=== PATIENT | male | born 1970 | race Caucasian/White ===

== ENCOUNTER 2018-06-15 00:36 | Emergency (ER) | payer OTHER, SELFPAY ==
[2018-06-15 00:53] VITALS: BP 130/89; PULSE 77; RESP 16; TEMP 36.7; O2SAT 98; BMI 29.8
--- NOTE | 2018-06-15 03:23 | ED.EAR ---
HPI - Ear Problem General Chief complaint: Ear Stated complaint: States poss ear infection, had flu last week Time Seen by Provider: 06/15/18 03:23 Source: patient Mode of arrival: ambulatory Limitations: no limitations History of Present Illness HPI Narrative: Patient is a 48-year-old male who presents with right ear pain. Mom said he was just getting over the flu he has had a fever cough and upper respiratory like symptoms he says that is overall improving. However over the last 3 days he has had external right ear pain. He noticed some redness along the outside air hurts to touch. His he has not had any drainage. MD Complaint: ear pain Location: right ear Related Data Home Medications Medication Instructions Recorded Confirmed amoxicillin-pot clavulanate 875 mg PO Q12H #0 09/01/16 [Augmentin] ibuprofen 800 mg PO TID #0 09/01/16 Previous Rx's Medication Instructions Recorded levofloxacin [Levaquin] 500 mg PO QDAY #10 tab 05/24/17 cephalexin 500 mg PO TID #21 tab 06/15/18 Allergies Allergy/AdvReac Type Severity Reaction Status Date / Time bee venom protein (honey bee) Allergy Severe Anaphylaxis Verified 06/15/18 00:57 [BEE VENOM PROTEIN (HONEY BEE)] erythromycin base Allergy Severe VOMITING Verified 06/15/18 00:57 [From ERYTHROCIN] sulfamethoxazole Allergy Severe ELEVATED Verified 06/15/18 00:57 [From BACTRIM] LIVER ENZYMES trimethoprim [From BACTRIM] Allergy Severe ELEVATED Verified 06/15/18 00:57 LIVER ENZYMES Review of Systems Review of Systems ROS Unobtainable: All systems reviewed & are unremarkable except as noted in HPI and below Constitutional Denies chills, Denies fever(s), Denies lethargy and Denies weakness ENT Ears, Nose, Mouth, and Throat: Reports as per HPI Cardiovascular Denies chest pain, Denies irregular heart rhythm, Denies lightheadedness, Denies palpitations, Denies dyspnea, Denies dyspnea on exertion and Denies orthopnea Respiratory Denies cough, Denies dyspnea, Denies dyspnea on exertion and Denies wheezing Gastrointestinal Gastrointestinal: Denies abdominal pain, Denies change in bowel habits, Denies diarrhea, Denies nausea and Denies vomiting Neurologic Denies weakness Endocrine Denies palpitations Allergic/Immunologic Denies wheezing [facility] Medical History Patient denies significant medical history (Acute) Social History Smoking Status: Never smoker Social History Smoking Status: Never smoker Exam Initial Vital Signs Initial Vital Signs: Vital Signs Temperature 98.1 F 06/15/18 00:53 Pulse Rate 77 06/15/18 00:53 Respiratory Rate 16 06/15/18 00:53 Blood Pressure 130/89 06/15/18 00:53 Pulse Oximetry 98 06/15/18 00:53 GENERAL: Well-appearing, well-nourished and in no acute distress. HEENT: Head atraumatic,EOMI, pupils reactive, EARS: Tympanic membranes visualized, no erythema or bulging, no hemotympanum right external ear small amount of erythema no abscess no drainage no laceration CARDIOVASCULAR: Regular rate and rhythm without murmurs, rubs or gallops. RESPIRATORY: Breath sounds equal bilaterally, no wheezes rales or rhonchi. EXTREMITIES: Normal range of motion, no clubbing or edema. Neurovascularly intact NEUROLOGICAL: Alert and oriented x4. SKIN: Warm, dry, no laceration, no petechiae, no rashes or lesions. Course Orders Ordered: Discontinued Medications Cefazolin Sodium (Keflex) 1 bottle [facility] Stop: 06/15/18 03:31 Last Admin: 06/15/18 03:59 Dose: 1 bottle Vital Signs - 8 hr 06/15/18 00:53 06/15/18 04:06 Temperature 98.1 F 97.2 F L Pulse Rate 77 67 Respiratory Rate 16 18 Blood Pressure 130/89 133/92 H Pulse Oximetry 98 99 Discharge Plan Departure Patient Disposition: Home Clinical Impression: Cellulitis of michelle of right ear Discharge Date/Time: 06/15/18 04:07 Interventions: ED Discharge Assessment Last Done: 06/15/18 04:06 Instructions: Cellulitis Activity Restrictions/Additional Instructions: *You have been diagnosed with cellulitis of the ear *What to do: Skin infection of the ear *Continue to take medications as directed Keflex 500 mg 3 times a day for 7 days *Follow up with your primary care provider in 2-3 days *Return to ER if you should have increasing redness, increasing or any new, worsening or concerning symptoms Prescriptions: New cephalexin 500 mg tablet 500 mg PO TID Qty: 21 RF: 0 No Action amoxicillin-pot clavulanate [Augmentin] 875 MG/125 MG tablet 875 mg PO Q12H Qty: 0 RF: 0 ibuprofen 800 MG tablet 800 mg PO TID Qty: 0 RF: 0 levofloxacin [Levaquin] 500 MG tablet 500 mg PO QDAY Qty: 10 RF: 0
[2018-06-15] MEDS: cephALEXin 250 MG PREPACK 1 BOTTLE MISC (03:59)
[2018-06-15 04:06] VITALS: BP 133/92; PULSE 67; RESP 18; TEMP 36.2; O2SAT 99
== END 2018-06-15 04:07 | disposition home or self-care (01) ==
PROVIDERS: Emergency Provider Emergency Medicine
DX: H60.11 Cellulitis of right external ear (principal)
CPT/HCPCS: 99282; 99283

== ENCOUNTER → 2018-07-06 14:36 | Outpatient (CLI) | payer OTHER, SELFPAY | PROVIDERS: Visit Provider Physician Assistant | DX: J34.0 Abscess, furuncle and carbuncle of nose (principal) | CPT/HCPCS: 87070; 87075; 87077; 87147; 87186; 87205 ==

== ENCOUNTER → 2019-09-17 16:11 | Outpatient (CLI) | payer OTHER, SELFPAY ==
--- NOTE | 2019-09-17 16:13 | DI.RAD.S_ITS ---
PROCEDURE: XR CERVICAL SPINE 2V OR 3V INDICATIONS: NECK PAIN TECHNIQUE: 3 view(s) of the cervical spine were acquired. COMPARISON: None. FINDINGS: Bones: No fractures or dislocations to the C7 level. The lateral masses of C1 appear intact on the odontoid view. No suspicious bony lesions. Multilevel degenerative endplate sclerosis and spurring. Diffuse facet arthropathy. Straightening of the normal lordotic curvature. Diffuse mild-moderate narrowing of the cervical disc spaces. Soft tissues: No prevertebral soft tissue swelling. IMPRESSION: Straightening of the normal lordotic curvature. Diffuse, mild-moderate cervical spondylosis and facet disease. Dictated by: Farooq Painter M.D. on 09/17/2019 at 16:42 Approved by: Farooq Painter M.D. on 09/17/2019 at 16:44
== END ==
PROVIDERS: Referring Provider Physician Assistant Medical; Visit Provider Physician Assistant Medical
DX: M54.2 Cervicalgia (principal); M47.22 Other spondylosis with radiculopathy, cervical region; M48.02 Spinal stenosis, cervical region
CPT/HCPCS: 72040

== ENCOUNTER 2022-09-17 10:15 | Outpatient (RCR) | payer OTHER, SELFPAY | END 2022-09-17 12:15 | LOC: CAR 10:15 | PROVIDERS: PCP Physician Assistant; Referring Provider Physician Assistant; Visit Provider Physician Assistant | DX: I21.3 ST elevation (STEMI) myocardial infarction of unspecified site (principal) | CPT/HCPCS: 93798 ==